=== PATIENT | male | born 1960 | race Caucasian/White ===

== ENCOUNTER 2019-09-30 09:58 | Day surgery (SDC) | payer OTHER ==
[~2019-09-30 09:58] MED LIST: ACETAMINOPHEN 1,000 MG/100 ML BTL IVPB ONE; CEFAZOLIN 2 Gram 2 GM/50 ML BAG IVPB ONE
[2019-09-30] MEDS ORDERED: FENTANYL PF 100MCG/2ML VIAL IV ONE (09:59)
[2019-09-30] MEDS ORDERED: LIDOCAINE 2% MDV (20MG/ML) 20ML VIAL IV ONE (09:59)
[2019-09-30] MEDS ORDERED: SEVOFLURANE 250 ML INH ONE (09:59)
[2019-09-30] MEDS ORDERED: MIDAZOLAM HCL 2MG/2ML VIAL IV ONE (09:59)
[2019-09-30] MEDS ORDERED: DEXAMETHASONE 4 MG/ML 1ML VIAL IVP ONE (09:59)
[2019-09-30] MEDS ORDERED: ONDANSETRON HCL IV 4 MG/2 ML VIAL IVP ONE (09:59)
[2019-09-30] MEDS ORDERED: PROPOFOL 10 MG/ML VIAL IV ONE (09:59)
[2019-09-30] MEDS ORDERED: RINGERS SOLUTION,LACTATED 1,000 ML IV ONE (13:24)
[2019-09-30] MEDS ORDERED: HYDROCODONE/APAP 7.5/325MG TABLET PO ONE (13:43)
--- NOTE | 2019-10-05 08:11 | Operative Note ---
DATE OF SURGERY: 09/30/2019 PREOPERATIVE DIAGNOSIS: Internal derangement of the left knee. POSTOPERATIVE DIAGNOSES: 1. Moderate synovitis of the pouch. 2. Complex radial split tear involving the posterior horn of the medial meniscus. OPERATION: 1. Left knee arthroscopy with partial medial meniscectomy. 2. Left knee arthroscopy with limited synovectomy. STAFF SURGEON: Socrates Nieves MD ANESTHESIA: General. PREPARATION: Chloraprep. INDIVIDUAL CONSIDERATIONS: None. PROCEDURE: The patient was taken to the operating room and placed supine on the operating room table. The patient had a successful induction with general anesthetic. The left lower extremity was prepped and draped in the usual fashion. The patient had a superolateral inflow cannula placed. Skin was infiltrated with 0.5% Marcaine with epinephrine prior. A large blood-tinged effusion was drained. The knee was inflated with normal saline. An inferomedial and an inferolateral portal were made in a similar fashion. The arthroscope was introduced through the inferolateral portal up into the pouch. Patellofemoral compartment was normal. In the pouch, there was some moderate synovitis which was debrided with a shaver. No loose bodies were seen in either gutter. Medially, he had an obvious complex radial split tear involving the posterior horn of the medial meniscus. Basically, most of the posterior horn was debrided out with basket forceps and a shaver to a stable rim but most of it was removed. In the notch, the cruciates were normal, and lateral compartment structures were normal. The knee was then irrigated out with saline to remove loose floating debris. Portals were closed with mai, and 20 mL of 0.5% Marcaine with epinephrine along with 4 mg of morphine and 40 mg of Depo-Medrol were injected into the knee. A sterile bulky compressive dressing was applied. The patient tolerated the procedure well. Needle and sponge counts were correct. Estimated blood loss was minimal. He was taken back to recovery in good condition. There were no complications. CASEY
== END 2019-09-30 14:10 | disposition home or self-care (01) ==
LOC: SUR 09:58
PROVIDERS: ATTEND Orthopaedic Surgery
DX: S83.232A Complex tear of medial meniscus, current injury, left knee, initial encounter (principal); M65.9 Synovitis and tenosynovitis, unspecified; I10 Essential (primary) hypertension
CPT/HCPCS: 93005; J2405; J7120